=== PATIENT | female | born 1970 | race Caucasian/White ===

== ENCOUNTER 2022-01-26 00:59 | Emergency (ER) | payer BC ==
[2022-01-26] MEDS ORDERED: Ondansetron 4 MG/2 ML SDV IVPUSH ONE (02:12)
[2022-01-26] MEDS ORDERED: Sodium Chloride 0.9% 1,000 ML IV ONE ×2 (02:12→03:39)
[2022-01-26] MEDS ORDERED: Morphine 4 MG/ML Syringe IVPUSH ONE (02:12)
[2022-01-26] MEDS ORDERED: Alum Hydrox/Mag Hydrox/Simeth 30 ML, Lidocaine 2% 15 ML PO ONE ×2 (03:01)
[2022-01-26] MEDS ORDERED: Famotidine 20 MG/2 ML SDV IVPUSH ONE (03:01)
[2022-01-26] MEDS ORDERED: diphenhydrAMINE 50 MG/ML SDV IVPUSH ONE (03:38)
[2022-01-26] MEDS ORDERED: Prochlorperazine 10 MG/2 ML SDV IVPUSH ONE (03:38)
[2022-01-26] MEDS ORDERED: Acetaminophen 325 MG Tab PO ONE (03:41)
== END 2022-01-26 04:50 | disposition home or self-care (01) ==
LOC: JD.ED 00:59
DX: R51.9 Headache, unspecified (principal); R11.2 Nausea with vomiting, unspecified; E66.01 Morbid (severe) obesity due to excess calories; Z68.43 Body mass index [BMI] 50.0-59.9, adult; Z79.899 Other long term (current) drug therapy; Z87.891 Personal history of nicotine dependence; Z86.16 Personal history of COVID-19
CPT/HCPCS: 36415; 80053; 81001; 83690; 83735; 85025; 96374; 96375; 99284; A9270; J0780; J1200; J2270; J2405; J3490; J7030

== ENCOUNTER 2022-06-27 07:33 | Emergency (ER) | payer BC ==
[2022-06-27] MEDS ORDERED: Colchicine 0.6 MG Tab PO ONE ×2 (08:14→10:25)
[2022-06-27] MEDS ORDERED: Acetaminophen/HYDROcodone 325-5 MG Tab PO ONE (08:18)
== END 2022-06-27 10:44 | disposition home or self-care (01) ==
LOC: JD.ED 07:33
DX: M10.9 Gout, unspecified (principal)
CPT/HCPCS: 36415; 80053; 84550; 85025; 86140; 99283; A9270

== ENCOUNTER 2022-10-04 07:10 | Day surgery (SDC) | payer BC ==
[~2022-10-04 07:10] MED LIST: Lactated Ringers 1,000 ML IV SCH; Lidocaine 1%/Sod Bicarbonate in NS 8.4% 1 ML Syringe IDERM PRN; Sodium Chloride 0.9% 10 ML Syringe FLUSH PRN; Sodium Chloride 0.9% 10 ML Syringe FLUSH SCH
[2022-10-04] MEDS ORDERED: Propofol 200 MG/20 ML SDV ONE (08:18)
[2022-10-04] MEDS ORDERED: Lidocaine 1% 4 ML ONE (08:18)
[2022-10-04] MEDS ORDERED: fentaNYL 100 MCG/2 ML SDV ONE (08:19)
[2022-10-04] MEDS ORDERED: Midazolam 1 MG/ML 2 ML SDV ONE (08:19)
== END 2022-10-04 09:43 | disposition home or self-care (01) ==
LOC: JD.SDS 07:10
PROVIDERS: ATTEND Surgery
DX: Z12.11 Encounter for screening for malignant neoplasm of colon (principal); D12.3 Benign neoplasm of transverse colon; K57.30 Diverticulosis of large intestine without perforation or abscess without bleeding; K64.8 Other hemorrhoids; F41.9 Anxiety disorder, unspecified; J45.909 Unspecified asthma, uncomplicated; K21.9 Gastro-esophageal reflux disease without esophagitis; E66.01 Morbid (severe) obesity due to excess calories; G47.30 Sleep apnea, unspecified; M10.9 Gout, unspecified; F32.A Depression, unspecified; Z98.890 Other specified postprocedural states; Z79.899 Other long term (current) drug therapy; Z90.49 Acquired absence of other specified parts of digestive tract; Z87.891 Personal history of nicotine dependence; Z68.42 Body mass index [BMI] 45.0-49.9, adult; Z86.16 Personal history of COVID-19; Z88.1 Allergy status to other antibiotic agents
CPT/HCPCS: 45380; J2250; J2704; J3010; J7120